=== PATIENT | female | born 1990 | race Caucasian/White ===

== ENCOUNTER 2022-04-29 18:12 | Inpatient (IN) | payer OTHER ==
[~2022-04-29] VITALS: Ht 165.1 cm; Wt 36.3 kg
[2022-04-29] MEDS ORDERED: DIAZEPAM 2.5 MG RECTAL GEL (DIASTAT) PR ONE (18:35)
[2022-04-29] MEDS ORDERED: MAG Sulf (L&D) 4 GM/100 ML 4 GM in IV 1 EA IV ONE (18:40)
[2022-04-29] MEDS ORDERED: MIDAZOLAM INJ 2MG/2ML VIAL (J2250 PER 1MG) IV STA ×3 (18:52→22:32)
[2022-04-29] MEDS ORDERED: LABETALOL 100MG/20ML VIAL IV ONE (19:10)
[2022-04-29 19:11] LABS: BASO % 0.2 % (0.0-1.0); HEMATOCRIT 37.8 % (36.0-47.0); HEMOGLOBIN 12.1 g/dl (12.0-15.5); LYMPH # 1.4 10^3/uL (1.5-5.0); LYMPH % 8.2 % (24.0-44.0); MEAN CORPUSCULAR HEMOGLOBIN 27.4 pg (27.0-33.0); MEAN CORPUSCULAR VOLUME 85.5 fl (80.0-96.0); MONO # 1.2 10^3/uL (0.0-0.8); MONO % 7.1 % (2.0-8.0); NEUTROPHILS # 14.7 10^3/uL (1.5-8.5); NEUTROPHILS % 84.1 % (36.0-66.0); PLATELET COUNT, AUTOMATED 393 10^3/uL (150-450); RED BLOOD COUNT 4.42 10^6/uL (4.00-5.40); WHITE BLOOD COUNT 17.4 10^3/uL (4.0-10.0)
[2022-04-29] MEDS ORDERED: levETIRAcetam INJection 1,000 MG in D5W 100 ML IV ONE (19:20)
[2022-04-29 19:35] LABS: ALBUMIN 3.1 GM/DL (3.2-5.2); ALT/SGPT 42 U/L (12-78); BILIRUBIN,DIRECT 0.1 MG/DL (0.0-0.2); BILIRUBIN,TOTAL 0.3 MG/DL (0.2-1.0); BLOOD UREA NITROGEN 23 MG/DL (7-18); CALCIUM LEVEL 9.4 MG/DL (8.5-10.1); CARBON DIOXIDE LEVEL 23 MEQ/L (21-32); CHLORIDE LEVEL 96 MEQ/L (98-107); CREATININE FOR GFR 1.05 MG/DL (0.55-1.30); GLOMERULAR FILTRATION RATE > 60.0 (>60); GLUCOSE, FASTING 149 MG/DL (70-100); POTASSIUM SERUM 4.2 MEQ/L (3.5-5.1); SODIUM LEVEL 131 MEQ/L (136-145); TOTAL PROTEIN 6.8 GM/DL (6.4-8.2); URIC ACID 4.8 MG/DL (2.6-6.0)
[2022-04-29 20:30] LABS: APPEARANCE, URINE MANUAL CLEAR (CLEAR); COLOR, URINE MANUAL YELLOW (YELLOW)
[2022-04-29 20:32] LABS: BILIRUBIN, URINE MANUAL NEGATIVE (NEGATIVE); BLOOD URINE MANUAL POSITIVE (NEGATIVE); GLUCOSE, URINE (UA) MANUAL NEGATIVE (NEGATIVE); KETONE, URINE MANUAL 1+ mg/dL (NEGATIVE); LEUKOCYTE ESTERASE, URINE MAN NEGATIVE (NEGATIVE); NITRITE, URINE MANUAL NEGATIVE (NEGATIVE); PROTEIN, URINE MANUAL TRACE mg/dL (NEGATIVE); UROBILINOGEN, URINE MANUAL NORMAL (NORMAL)
[2022-04-29 20:39] LABS: BACTERIA, URINE NONE SEEN; MUCUS, URINE LARGE AMOUNT (NEGATIVE); SQUAMOUS EPITHELIAL CELL URINE SMALL AMOUNT /hpf (SMALL AMT); WBC, URINE NONE SEEN /hpf (0-3)
[2022-04-29 20:51] LABS: RSV AMPLIFICATION NEGATIVE (NEGATIVE)
[2022-04-29 21:03] LABS: AMPHETAMINES LEVEL URINE NEGATIVE (NEGATIVE); BARBITURATES URINE NEGATIVE (NEGATIVE); BENZODIAZEPINES URINE POSITIVE (NEGATIVE); CANNABINOIDS URINE NEGATIVE (NEGATIVE); COCAINE METABOLITE URINE NEGATIVE (NEGATIVE); METHADONE URINE POSITIVE (NEGATIVE); OPIATES URINE POSITIVE (NEGATIVE); PHENCYCLIDINE URINE NEGATIVE (NEGATIVE); TOTAL PROTEIN,RANDOM URINE 35.4 MG/DL (0.0-12.0)
[2022-04-29] MEDS: diazePAM 10MG/2ML SYRINGE (J3360 PER 5MG) IV PRN ×2 (22:02→23:38)
[2022-04-30] VITALS (12 sets, daily range): BP systolic 152–212; BP diastolic 90–117
[2022-04-30] MEDS ORDERED: MIDAZOLAM INJ 2MG/2ML VIAL (J2250 PER 1MG) IV STA ×2 (01:12→01:41)
[2022-04-30] MEDS: diazePAM 10MG/2ML SYRINGE (J3360 PER 5MG) IV PRN (01:54)
[2022-04-30] MEDS ORDERED: LIDOCAINE 1% MDV 20ML VIAL IM ONE (01:55)
[2022-04-30] MEDS ORDERED: NS 1,000 ML IV ONE (02:10)
[2022-04-30] MEDS ORDERED: NS 1,000 ML IV SCH (02:10)
[2022-04-30] MEDS ORDERED: cefTRIAXone SOD 1 GM in D5W MINI-BAG PLUS 50 ML IV SCH (02:10)
[2022-04-30] MEDS ORDERED: FLUID PLACE HOLDER IV ONE (02:15)
[2022-04-30] MEDS ORDERED: cefTRIAXone SOD 2 GM in D5W MINI-BAG PLUS 50 ML IV ONE (02:15)
[2022-04-30] MEDS ORDERED: FLUID PLACE HOLDER IV SCH (02:15)
[2022-04-30] MEDS ORDERED: ACYCLOVIR IV SCH (02:15)
[2022-04-30] MEDS ORDERED: VANCOMYCIN HCL IV ONE (02:15)
[2022-04-30] MEDS ORDERED: VANCOMYCIN HCL 750 MG, VIAL MATE ADAPTER 1 EACH in NS 250 ML IV SCH (02:40)
[2022-04-30] MEDS ORDERED: BACI1CAP4 PO (03:39)
[2022-04-30] MEDS ORDERED: METH10CO PO (03:39)
[2022-04-30] MEDS ORDERED: VITA100093 PO (03:39)
[2022-04-30] MEDS ORDERED: NIFE30TA50 PO (03:39)
[2022-04-30] MEDS ORDERED: ACYCLOVIR 500 MG in D5W MINI-BAG PLUS 100 ML IV SCH (04:00)
[2022-04-30] MEDS: levETIRAcetam INJection 500 MG in D5W MINI-BAG PLUS 100 ML IV SCH ×2 (04:55→16:36)
[2022-04-30] MEDS ORDERED: VANCOMYCIN HCL 750 MG, VIAL MATE ADAPTER 1 EACH in D5W 250 ML IV ONE (05:00)
[2022-04-30 06:23] LABS: ALBUMIN 2.9 GM/DL (3.2-5.2); ALT/SGPT 35 U/L (12-78); BILIRUBIN,TOTAL 0.3 MG/DL (0.2-1.0); BLOOD UREA NITROGEN 22 MG/DL (7-18); CALCIUM LEVEL 9.2 MG/DL (8.5-10.1); CARBON DIOXIDE LEVEL 30 MEQ/L (21-32); CHLORIDE LEVEL 99 MEQ/L (98-107); CREATININE FOR GFR 0.68 MG/DL (0.55-1.30); GLOMERULAR FILTRATION RATE > 60.0 (>60); GLUCOSE, FASTING 110 MG/DL (70-100); MAGNESIUM LEVEL 2.7 MG/DL (1.8-2.4); POTASSIUM SERUM 3.9 MEQ/L (3.5-5.1); SODIUM LEVEL 135 MEQ/L (136-145); TOTAL PROTEIN 6.3 GM/DL (6.4-8.2)
[2022-04-30] MEDS ORDERED: METHADONE 5MG TAB PO SCH (09:00)
[2022-04-30] MEDS ORDERED: NIFEdipine 30 MG XL TAB PO SCH (09:00)
[2022-04-30] MEDS ORDERED: HEPARIN SOD (PORCINE) 5000UNITS/ML 1ML VIAL/SYRINGE SC SCH (09:00)
[2022-04-30] MEDS ORDERED: HOME MED LIST COMPLETE! XX SCH (10:30)
[2022-04-30] MEDS ORDERED: diazePAM 10MG/2ML SYRINGE (J3360 PER 5MG) IV PRN ×2 (10:45→15:55)
[2022-04-30] MEDS ORDERED: hydrALAZINE 20MG/ML 1ML VIAL (J0360 PER 20MG) IV ONE ×2 (12:20→13:15)
[2022-04-30] MEDS ORDERED: LIDOCAINE 1% MDV 20ML VIAL As Ordered ONE (14:07)
[2022-04-30 14:15] LABS: CSF TUBE# GLU TUBE 2; CSF TUBE# TP TUBE 2; GLUCOSE CSF 58 MG/DL (40-75); TOTAL PROTEIN,CSF 48 MG/DL (15-45)
[2022-04-30 14:17] LABS: APPEARANCE, CSF CLEAR (CLEAR); COLOR, CSF COLORLESS (COLORLESS); CSF TUBE# CELL CNT TUBE 1
[2022-04-30] MEDS ORDERED: SODIUM CHLORIDE 0.9% INJ 10 ML SYR IV PRN (15:35)
[2022-04-30] MEDS ORDERED: LABETALOL 100MG/20ML VIAL IV ONE (16:15)
[2022-04-30] MEDS: D5W/0.9% SODIUM CHLORIDE 1,000 ML IV SCH (17:45)
[2022-04-30] MEDS: SODIUM CHLORIDE 0.9% INJ 10 ML SYR IV SCH (17:46)
[2022-04-30] MEDS: NICOTINE 7 MG/24 HR TRANSDERMAL TD SCH (19:03)
[2022-04-30] MEDS ORDERED: VANCOMYCIN HCL 500 MG in D5W MINI-BAG PLUS 100 ML IV SCH (20:00)
[2022-04-30] MEDS: LABETALOL 100MG/20ML VIAL IV PRN (22:50)
[2022-05-01] MEDS ORDERED: UNRESOLVED CLARIFICATION ENTRY XX SCH (00:01)
[2022-05-01 01:00] VITALS: BP 180/94
[2022-05-01] MEDS: hydrALAZINE 20MG/ML 1ML VIAL (J0360 PER 20MG) IV PRN ×2 (01:02→08:22)
[2022-05-01] MEDS ORDERED: cefTRIAXone SOD 1 GM in D5W MINI-BAG PLUS 50 ML IV SCH (03:00)
[2022-05-01 03:43] VITALS: BP 174/102
[2022-05-01] MEDS: METHADONE 10MG TAB PO SCH ×2 (03:55→08:24)
[2022-05-01] MEDS: levETIRAcetam INJection 500 MG in D5W MINI-BAG PLUS 100 ML IV SCH (03:55)
[2022-05-01] MEDS: D5W/0.9% SODIUM CHLORIDE 1,000 ML IV SCH (03:55)
[2022-05-01] MEDS: SODIUM CHLORIDE 0.9% INJ 10 ML SYR IV SCH (05:43)
[2022-05-01] MEDS: LABETALOL 100MG/20ML VIAL IV PRN (05:43)
[2022-05-01 06:00] VITALS: BP 182/110
[2022-05-01] MEDS ORDERED: HEPARIN SOD (PORCINE) 5000UNITS/ML 1ML VIAL/SYRINGE SQ SCH (06:00)
[2022-05-01 06:07] LABS: BASO % 0.1 % (0.0-1.0); EOS # 0.1 10^3/uL (0.0-0.5); EOS % 0.5 % (0.0-3.0); HEMATOCRIT 33.4 % (36.0-47.0); HEMOGLOBIN 10.6 g/dl (12.0-15.5); LYMPH # 1.1 10^3/uL (1.5-5.0); LYMPH % 11.7 % (24.0-44.0); MEAN CORPUSCULAR HEMOGLOBIN 27.2 pg (27.0-33.0); MEAN CORPUSCULAR HGB CONC 31.7 g/dl (32.0-36.5); MEAN CORPUSCULAR VOLUME 85.9 fl (80.0-96.0); MONO # 0.8 10^3/uL (0.0-0.8); NEUTROPHILS # 7.2 10^3/uL (1.5-8.5); NEUTROPHILS % 78.4 % (36.0-66.0); PLATELET COUNT, AUTOMATED 283 10^3/uL (150-450); RED BLOOD COUNT 3.89 10^6/uL (4.00-5.40); WHITE BLOOD COUNT 9.1 10^3/uL (4.0-10.0)
[2022-05-01 06:34] LABS: BLOOD UREA NITROGEN 12 MG/DL (7-18); C REACTIVE PROTEIN QUANTITATIV 1.05 MG/DL (0.00-0.30); CALCIUM LEVEL 8.6 MG/DL (8.5-10.1); CARBON DIOXIDE LEVEL 26 MEQ/L (21-32); CHLORIDE LEVEL 104 MEQ/L (98-107); CREATININE FOR GFR 0.46 MG/DL (0.55-1.30); GLOMERULAR FILTRATION RATE > 60.0 (>60); GLUCOSE, FASTING 98 MG/DL (70-100); POTASSIUM SERUM 3.5 MEQ/L (3.5-5.1); SODIUM LEVEL 135 MEQ/L (136-145)
[2022-05-01 08:00] VITALS: BP 178/100
[2022-05-01 08:22] VITALS: BP 172/100
[2022-05-01] MEDS ORDERED: LABETALOL 100MG/20ML VIAL IV PRN (08:55)
[2022-05-01] MEDS ORDERED: ENOXAPARIN 30MG/0.3ML SYRINGE (J1650 PER 10MG) SC SCH (09:00)
[2022-05-01 10:33] LABS: ABG BASE EXCESS 2.6 (-2.0-2.0); ABG HCO3 26.2 MEQ/L (22.0-26.0); ABG O2 SATURATION 96.9 % (95.0-99.0); ABG PARTIAL PRESSURE CO2 36.8 mmHg (35.0-45.0); ABG STANDARD HCO3 26.7 MEQ/L (22.0-26.0); ABG TOTAL CO2 27.3 MEQ/L (22.0-29.0)
[2022-05-01] MEDS: NICOTINE 7 MG/24 HR TRANSDERMAL TD SCH (11:25)
[2022-05-01 12:00] VITALS: BP 162/90
[2022-05-01] MEDS ORDERED: PROHANCE 279.3MG/ML 5ML VIAL As Ordered ONE (12:33)
[2022-05-01] MEDS ORDERED: NIFE1TAB52 PO (14:55)
[2022-05-01] MEDS ORDERED: KEPP1TAB PO (14:56)
== END 2022-05-01 14:08 | disposition left against medical advice (07) | DRG 50 ==
LOC: EDBD 18:12 → M ED 18:12 → M ED INP 04-30 02:04 → M PCU 04-30 03:26
PROVIDERS: ADMIT Internal Medicine; ATTEND Internal Medicine
PROC: B246ZZZ Ultrasonography of Right and Left Heart (ICD-10-PCS; 2022-04-30)
PROC: 009U3ZX Drainage of Spinal Canal, Percutaneous Approach, Diagnostic (ICD-10-PCS; 2022-04-30)
PROC: 02HV33Z Insertion of Infusion Device into Superior Vena Cava, Percutaneous Approach (ICD-10-PCS; principal; 2022-04-30 15:00)
DX: G04.90 Encephalitis and encephalomyelitis, unspecified (principal); Z20.822 Contact with and (suspected) exposure to COVID-19; F17.200 Nicotine dependence, unspecified, uncomplicated; G93.41 Metabolic encephalopathy; E43 Unspecified severe protein-calorie malnutrition; Z79.899 Other long term (current) drug therapy